=== PATIENT | female | born 1995 | race Caucasian/White ===

== ENCOUNTER 2019-10-01 21:48 | Emergency (ER) | payer BC ==
[~2019-10-01] VITALS: Ht 160 cm; Wt 61.2 kg
[2019-10-01] MEDS ORDERED: KEFLEX500 M1 PO (22:55)
[2019-10-01 23:52] VITALS: BP 126/72
== END 2019-10-01 23:52 | disposition home or self-care (01) ==
LOC: M.ERS 21:48
DX: S90.851A Superficial foreign body, right foot, initial encounter (principal); X58.XXXA Exposure to other specified factors, initial encounter; Y93.89 Activity, other specified; Y92.89 Other specified places as the place of occurrence of the external cause; Y99.8 Other external cause status